=== PATIENT | female | born 1985 | race Hispanic/Latino ===

== ENCOUNTER 2017-10-01 16:44 | Observation (INO) | payer BC, MEDICAID ==
[~2017-10-01] VITALS: Ht 167.6 cm; Wt 143.3 kg
[2017-10-01 17:51] LABS: APPEARANCE,URINE Clear (CLEAR); BILIRUBIN,URINE Negative (NEGATIVE); COLOR,URINE Yellow (YELLOW); GLUCOSE, URINE (UA) Negative (NEGATIVE); KETONES,URINE Negative (NEGATIVE); LEUKOCYTE ESTERASE ,URINE Negative (NEGATIVE); NITRATE,URINE Negative (NEGATIVE); OCCULT BLOOD,URINE Negative (NEGATIVE); PROTEIN,URINE Negative (NEGATIVE)
[2017-10-01 17:51] LABS: BASOPHILS % (AUTO) 0.5 % (0.0-5.0); EOSINOPHILS % (AUTO) 0.5 % (0.0-8.0); HEMATOCRIT 32.6 % (36-48); LYMPHOCYTES % (AUTO) 21.2 % (21.0-51.0); MEAN CORPUSCULAR HEMOGLOBIN 31.1 pg (27.0-33.0); MEAN CORPUSCULAR HGB CONC 35.3 g/dL (32.0-36.0); NEUTROPHILS % (AUTO) 71.8 % (40.0-77.0); PLATELET COUNT (AUTO) 215 K/uL (130-400); RED BLOOD CELL COUNT(AUTO) 3.71 MIL/uL (4.00-5.50); RED CELL DISTRIBUTION WIDTH 14.8 % (11.0-15.5); WHITE BLOOD COUNT (AUTO) 9.9 K/uL (4.8-10.8)
[2017-10-01 18:02] LABS: CREATININE 0.4 mg/dL (0.5-1.5); INR 0.89 (0.85-1.15); PARTIAL THROMBOPLASTIN TIME 25.4 SEC (26.3-35.5); POTASSIUM 3.5 mmol/L (3.5-5.1); PROTHROMBIN TIME 9.4 SEC (9.6-11.6)
[2017-10-01 18:05] LABS: ALBUMIN 2.7 g/dL (3.5-5.0); BILIRUBIN,TOTAL 0.4 mg/dL (0.2-1.0); TOTAL PROTEIN, SERUM 7.1 g/dL (6.0-8.3); URIC ACID 4.5 mg/dL (2.6-7.2)
[2017-10-01] MEDS ORDERED: LACTATED RINGERS 1000ML IV PRN (20:15)
[2017-10-01] MEDS ORDERED: LACTATED RINGERS 1000ML 1,000 ML IV SCH (21:15)
[2017-10-03 07:11] LABS: HEPATITIS Bs ANTIGEN SCREEN P Negative (Negative)
== END 2017-10-02 01:30 | disposition home or self-care (01) ==
LOC: LDH 16:44
PROVIDERS: ADMIT Obstetrics & Gynecology; ATTEND Obstetrics & Gynecology
DX: O13.3 Gestational [pregnancy-induced] hypertension without significant proteinuria, third trimester (principal); O75.82 Onset (spontaneous) of labor after 37 completed weeks of gestation but before 39 completed weeks gestation, with delivery by (planned) cesarean section; Z3A.38 38 weeks gestation of pregnancy
CPT/HCPCS: 36415 ×2; 76819 ×2; 80053; 81003; 84550; 85025; 85384; 85610; 85730; 86592; 86850; 86900; 86901; 87340; 96360; 96361 ×2; G0378 ×10

== ENCOUNTER 2017-10-12 18:04 | Inpatient (IN) | payer BC, MEDICAID ==
[~2017-10-12] VITALS: Ht 167.6 cm; Wt 142.4 kg
[2017-10-12 18:40] LABS: APPEARANCE,URINE Cloudy (CLEAR); BILIRUBIN,URINE Negative (NEGATIVE); COLOR,URINE Dark Yellow (YELLOW); GLUCOSE, URINE (UA) Negative (NEGATIVE); KETONES,URINE Negative (NEGATIVE); LEUKOCYTE ESTERASE ,URINE Trace (NEGATIVE); NITRATE,URINE Negative (NEGATIVE); OCCULT BLOOD,URINE Negative (NEGATIVE); PROTEIN,URINE Negative (NEGATIVE)
[2017-10-12 18:53] LABS: HEMATOCRIT 34.8 % (36-48); MEAN CORPUSCULAR HEMOGLOBIN 30.4 pg (27.0-33.0); MEAN CORPUSCULAR HGB CONC 34.2 g/dL (32.0-36.0); MEAN CORPUSCULAR VOLUME 88.9 fL (79-99); PLATELET COUNT (AUTO) 217 K/uL (130-400); RED BLOOD CELL COUNT(AUTO) 3.92 MIL/uL (4.00-5.50); RED CELL DISTRIBUTION WIDTH 15.3 % (11.0-15.5); WHITE BLOOD COUNT (AUTO) 10.2 K/uL (4.8-10.8)
[2017-10-12 18:57] LABS: BACTERIA,URINE Few /HPF (None Seen); CALCIUM OXALATE CRYSTALS,UR Many /LPF (None Seen); MUCUS,URINE Few LPF (None Seen); RBC,URINE 0-1 /HPF (0-1); WBC,URINE 0-1 /HPF (0-1)
[2017-10-12 19:30] VITALS: BP 124/78
[2017-10-12] MEDS: LACTATED RINGERS 1000ML 1,000 ML IV PRN (22:58)
[2017-10-13] MEDS ORDERED: OXYTOCIN 10 USP UNITS/ML ONE ×2 (04:52→12:16)
[2017-10-13] MEDS ORDERED: LACTATED RINGERS 1000ML 1,000 ML IV ONE ×2 (04:52→12:16)
[2017-10-13] MEDS ORDERED: OXYTOCIN 10 USP UNITS/ML 20 UNIT in LACTATED RINGERS 1000ML 1,000 ML IV SCH (05:00)
[2017-10-13] MEDS: LACTATED RINGERS 1000ML 1,000 ML IV PRN (07:30)
[2017-10-13] MEDS ORDERED: MEPERIDINE-PF 50 MG/ML SYG IVP SCH (09:45)
[2017-10-13] MEDS ORDERED: PROMETHAZINE HCL 25 MG/ML 1ML AMPULE IM SCH (09:45)
[2017-10-13] MEDS ORDERED: BENZOCAINE/LANOLIN/ALOE VERA 60 ML AEROSOL TP PRN (12:45)
[2017-10-13] MEDS ORDERED: MEASLES/MUMPS/RUBELLA VACCINE, LIVE 0.5 ML/VIAL SQ PRN (12:45)
[2017-10-13] MEDS ORDERED: ACETAMINOPHEN 325 MG TAB PO PRN (12:45)
[2017-10-13] MEDS ORDERED: WITCH HAZEL 1 PAD TP PRN (12:45)
[2017-10-13] MEDS ORDERED: LANOLIN 30GM OINTMENT TP PRN (12:45)
[2017-10-13] MEDS ORDERED: DIPH,PERTUSS(ACELL),TET VAC/PF 0.5 ML VIAL IM PRN (12:45)
[2017-10-13] MEDS ORDERED: OXYTOCIN-LR 20 UNITS/1000 ML 1,000 ML IV SCH (12:45)
[2017-10-13 13:52] VITALS: BP 136/74
[2017-10-13 15:43] VITALS: BP 144/94
[2017-10-13] MEDS ORDERED: PNV1TABL17 PO (15:54)
[2017-10-13] MEDS: IBUPROFEN 600 MG TABLET PO PRN (18:20)
[2017-10-13 19:38] VITALS: BP 125/80
[2017-10-13] MEDS: DOCUSATE SODIUM 100 MG CAP PO SCH (20:21)
[2017-10-13 23:19] VITALS: BP 129/85
[2017-10-14 03:21] VITALS: BP 118/62
[2017-10-14 05:23] LABS: HEMATOCRIT 25.5 % (36-48); MEAN CORPUSCULAR HEMOGLOBIN 32.3 pg (27.0-33.0); MEAN CORPUSCULAR HGB CONC 36.4 g/dL (32.0-36.0); MEAN CORPUSCULAR VOLUME 88.7 fL (79-99); PLATELET COUNT (AUTO) 170 K/uL (130-400); RED BLOOD CELL COUNT(AUTO) 2.88 MIL/uL (4.00-5.50); RED CELL DISTRIBUTION WIDTH 15.4 % (11.0-15.5); WHITE BLOOD COUNT (AUTO) 8.2 K/uL (4.8-10.8)
[2017-10-14 07:27] LABS: HEPATITIS Bs ANTIGEN SCREEN P Negative (Negative)
[2017-10-14 07:35] VITALS: BP 133/84
[2017-10-14] MEDS: DOCUSATE SODIUM 100 MG CAP PO SCH (09:01)
[2017-10-14] MEDS: IBUPROFEN 600 MG TABLET PO PRN (09:02)
[2017-10-14 11:53] VITALS: BP 132/92
== END 2017-10-14 14:15 | disposition home or self-care (01) | DRG 775 ==
LOC: LDH 18:04 → OBSVTOIN 18:04 → WSH 10-13 13:54
PROVIDERS: ADMIT Obstetrics & Gynecology; ATTEND Obstetrics & Gynecology
PROC: 10E0XZZ Delivery of Products of Conception, External Approach (ICD-10-PCS; principal; 2017-10-13)
PROC: 10907ZC Drainage of Amniotic Fluid, Therapeutic from Products of Conception, Via Natural or Artificial Opening (ICD-10-PCS; 2017-10-13)
PROC: 3E033VJ Introduction of Other Hormone into Peripheral Vein, Percutaneous Approach (ICD-10-PCS; 2017-10-13)
PROC: 3E0234Z Introduction of Serum, Toxoid and Vaccine into Muscle, Percutaneous Approach (ICD-10-PCS; 2017-10-13)
DX: O69.2XX0 Labor and delivery complicated by other cord entanglement, with compression, not applicable or unspecified (principal); O14.94 Unspecified pre-eclampsia, complicating childbirth; O69.81X0 Labor and delivery complicated by cord around neck, without compression, not applicable or unspecified; Z23 Encounter for immunization; Z37.0 Single live birth; Z3A.39 39 weeks gestation of pregnancy
CPT/HCPCS: 36415; 76805; 81001; 85027; 86592; 86850; 86900; 86901; 87340; 87804; 90715; A4351; J2175; J2550; J2590; J7120

== ENCOUNTER 2021-05-13 08:53 | Observation (INO) | payer OTHER, MEDICAID ==
[~2021-05-13] VITALS: Ht 170.2 cm; Wt 117.9 kg
[~2021-05-13 08:53] MED LIST: PNV1TABL17 PO
[2021-05-13 09:23] VITALS: BP 115/84
[2021-05-13 09:24] LABS: BASOPHILS % (AUTO) 0.3 % (0.0-5.0); EOSINOPHILS % (AUTO) 0.5 % (0.0-8.0); HEMATOCRIT 33.6 % (36-48); LYMPHOCYTES % (AUTO) 15.9 % (21.0-51.0); MEAN CORPUSCULAR HEMOGLOBIN 30.8 pg (27.0-33.0); MEAN CORPUSCULAR HGB CONC 33.6 g/dL (32.0-36.0); MEAN CORPUSCULAR VOLUME 91.6 fL (79-99); MONOCYTES % (AUTO) 5.4 % (3.0-13.0); NEUTROPHILS % (AUTO) 77.2 % (40.0-77.0); PLATELET COUNT (AUTO) 219 K/uL (130-400); RED BLOOD CELL COUNT(AUTO) 3.67 MIL/uL (4.00-5.50); RED CELL DISTRIBUTION WIDTH 13.3 % (11.0-15.5); WHITE BLOOD COUNT (AUTO) 8.6 K/uL (4.8-10.8)
[2021-05-13 09:57] LABS: BILIRUBIN,TOTAL 0.7 mg/dL (0.2-1.0); CREATININE 0.5 mg/dL (0.5-1.5); POTASSIUM 3.8 mmol/L (3.5-5.1); TOTAL PROTEIN, SERUM 7.4 g/dL (6.0-8.3)
[2021-05-13] MEDS ORDERED: CELESTONE SOLUSPAN 6 MG/ML 5ML VIAL IM SCH (10:00)
[2021-05-13] MEDS ORDERED: LACTATED RINGERS 1000ML 1,000 ML IV PRN (10:00)
[2021-05-13] MEDS: LABETALOL HCL 100 MG TABLET PO SCH (20:59)
[2021-05-13] MEDS: ACETAMINOPHEN 500 MG TABLET PO PRN (21:10)
[2021-05-14] MEDS: ACETAMINOPHEN 500 MG TABLET PO PRN (02:41)
[2021-05-14 08:15] LABS: HEPATITIS Bs ANTIGEN SCREEN P Negative (Negative)
[2021-05-14] MEDS: LABETALOL HCL 100 MG TABLET PO SCH (09:30)
[2021-05-14 10:39] LABS: RAPID PLASMA REAGIN NONREACTIVE (NONREACTIVE)
== END 2021-05-14 09:47 | disposition home or self-care (01) ==
LOC: EDH 08:53 → INTOOBSV 08:54 → OBSVTOIN 08:54 → LDH 08:54
PROVIDERS: ADMIT Specialist; ATTEND Specialist
DX: O9A.212 Injury, poisoning and certain other consequences of external causes complicating pregnancy, second trimester (principal); S16.1XXA Strain of muscle, fascia and tendon at neck level, initial encounter; S20.219A Contusion of unspecified front wall of thorax, initial encounter; O99.212 Obesity complicating pregnancy, second trimester; E66.01 Morbid (severe) obesity due to excess calories; Z3A.25 25 weeks gestation of pregnancy; Z68.41 Body mass index [BMI] 40.0-44.9, adult; V43.52XA Car driver injured in collision with other type car in traffic accident, initial encounter; Y93.89 Activity, other specified; Y92.410 Unspecified street and highway as the place of occurrence of the external cause
CPT/HCPCS: 36415; 71045; 72040; 76805; 80053; 85025; 85460; 86592; 86701; 86850; 86900; 86901; 87340; 87390; 96360; 96361; 99284; G0378 ×24; J0702; J7120

== ENCOUNTER 2021-08-12 09:11 | Observation (INO) | payer OTHER, MEDICAID ==
[~2021-08-12] VITALS: Ht 167.6 cm; Wt 145.1 kg
[2021-08-12] MEDS: LACTATED RINGERS 1000ML 1,000 ML IV SCH ×3 (08:45→13:39)
[2021-08-12 09:54] LABS: APPEARANCE,URINE Clear (CLEAR); BILIRUBIN,URINE Small (NEGATIVE); COLOR,URINE Dark Yellow (YELLOW); GLUCOSE, URINE (UA) Negative (NEGATIVE); KETONES,URINE Trace mg/dL (NEGATIVE); LEUKOCYTE ESTERASE ,URINE Small (NEGATIVE); NITRATE,URINE Negative (NEGATIVE); OCCULT BLOOD,URINE Small (NEGATIVE); PH,URINE 5.5 (5.0-8.0); PROTEIN,URINE Trace mg/dL (NEGATIVE)
[2021-08-12 10:21] LABS: BACTERIA,URINE Few /HPF (None Seen); MUCUS,URINE Moderate LPF (None Seen); RBC,URINE 0-1 /HPF (0-1)
[2021-08-12 13:55] LABS: BASOPHILS % (AUTO) 0.4 % (0.0-5.0); EOSINOPHILS % (AUTO) 0.8 % (0.0-8.0); HEMATOCRIT 30.2 % (36-48); LYMPHOCYTES % (AUTO) 15.6 % (21.0-51.0); MEAN CORPUSCULAR HEMOGLOBIN 28.3 pg (27.0-33.0); MEAN CORPUSCULAR HGB CONC 33.1 g/dL (32.0-36.0); MEAN CORPUSCULAR VOLUME 85.6 fL (79-99); MONOCYTES % (AUTO) 6.4 % (3.0-13.0); NEUTROPHILS % (AUTO) 76.4 % (40.0-77.0); PLATELET COUNT (AUTO) 223 K/uL (130-400); RED BLOOD CELL COUNT(AUTO) 3.53 MIL/uL (4.00-5.50); RED CELL DISTRIBUTION WIDTH 14.6 % (11.0-15.5); WHITE BLOOD COUNT (AUTO) 8.5 K/uL (4.8-10.8)
[2021-08-12 14:06] LABS: CREATININE 0.5 mg/dL (0.5-1.5); POTASSIUM 3.6 mmol/L (3.5-5.1)
[2021-08-12 14:10] LABS: ALBUMIN 2.6 g/dL (3.5-5.0); BILIRUBIN,TOTAL 0.6 mg/dL (0.2-1.0); TOTAL PROTEIN, SERUM 6.9 g/dL (6.0-8.3); URIC ACID 4.3 mg/dL (2.6-7.2)
[2021-08-12 14:30] LABS: INR 0.96 (0.85-1.15); PROTHROMBIN TIME 10.5 SEC (9.6-11.6)
[2021-08-12 14:31] LABS: PARTIAL THROMBOPLASTIN TIME 24.5 SEC (26.3-35.5)
[2021-08-12] MEDS ORDERED: LABETALOL HCL 100 MG TABLET ONE (18:40)
[2021-08-12] MEDS ORDERED: LABETALOL HCL 100 MG TABLET PO SCH (18:45)
[2021-08-12 21:00] VITALS: BP 145/78
[2021-08-13] MEDS: LACTATED RINGERS 1000ML 1,000 ML IV SCH (02:26)
== END 2021-08-13 12:30 | disposition home or self-care (01) ==
LOC: LDH 09:11
PROVIDERS: ADMIT Specialist; ATTEND Specialist
DX: O10.913 Unspecified pre-existing hypertension complicating pregnancy, third trimester (principal); O41.03X0 Oligohydramnios, third trimester, not applicable or unspecified; O99.213 Obesity complicating pregnancy, third trimester; E66.01 Morbid (severe) obesity due to excess calories; Z3A.36 36 weeks gestation of pregnancy
CPT/HCPCS: 36415; 59025; 76819; 80053; 81001; 84550; 85025; 85384; 85610; 85730; 87077; 87088; 87186; 96360; 96361 ×4; G0378 ×27; G0379; J7120 ×5

== ENCOUNTER 2021-08-17 10:42 | Inpatient (IN) | payer OTHER ==
[2021-08-17] MEDS ORDERED: LACTATED RINGERS 1000ML 1,000 ML IV ONE (18:00)
[2021-08-17] MEDS ORDERED: LACTATED RINGERS 1000ML 1,000 ML IV PRN (18:00)
[2021-08-17] MEDS ORDERED: PROMETHAZINE HCL 25 MG/ML 1ML AMPULE IM ONE (18:00)
[2021-08-17] MEDS ORDERED: LACTATED RINGERS 500 ML 500 ML IV PRN (18:00)
[2021-08-17] MEDS ORDERED: OXYTOCIN-LR 20 UNITS/1000 ML 1,000 ML IV SCH (18:00)
[2021-08-17] MEDS ORDERED: MEPERIDINE-PF 50 MG/ML SYG IVP ONE (18:00)
[2021-08-17] MEDS ORDERED: EPHEDRINE SULFATE 50 MG/ML AMPULE IVP PRN (18:00)
[2021-08-17] MEDS ORDERED: NALOXONE HCL 0.4 MG/1 ML ML IV PRN (18:00)
[2021-08-17] MEDS ORDERED: MISOPROSTOL 100 MCG TABLET VG SCH (18:00)
[2021-08-17 18:47] LABS: HEMATOCRIT 32.8 % (36-48); MEAN CORPUSCULAR HEMOGLOBIN 27.6 pg (27.0-33.0); MEAN CORPUSCULAR HGB CONC 32.6 g/dL (32.0-36.0); MEAN CORPUSCULAR VOLUME 84.8 fL (79-99); RED BLOOD CELL COUNT(AUTO) 3.87 MIL/uL (4.00-5.50); RED CELL DISTRIBUTION WIDTH 14.6 % (11.0-15.5); WHITE BLOOD COUNT (AUTO) 9.5 K/uL (4.8-10.8)
[2021-08-17 18:59] LABS: APPEARANCE,URINE Clear (CLEAR); BILIRUBIN,URINE Negative (NEGATIVE); COLOR,URINE Yellow (YELLOW); GLUCOSE, URINE (UA) Negative (NEGATIVE); KETONES,URINE Negative (NEGATIVE); LEUKOCYTE ESTERASE ,URINE Trace (NEGATIVE); NITRATE,URINE Negative (NEGATIVE); OCCULT BLOOD,URINE Trace (NEGATIVE); PH,URINE 5.5 (5.0-8.0); PROTEIN,URINE Negative (NEGATIVE)
[2021-08-17 19:16] LABS: BACTERIA,URINE Rare /HPF (None Seen); RBC,URINE 0-1 /HPF (0-1); SQUAMOUS EPITHELIAL CELL,UR Few /HPF (0-2); WBC,URINE 0-1 /HPF (0-1)
[2021-08-17] MEDS: MISOPROSTOL 25 MCG TABLET VG SCH (19:32)
[2021-08-17] MEDS ORDERED: LABETALOL HCL 200 MG TABLET PO SCH (21:00)
[2021-08-17] MEDS ORDERED: AMPICILLIN 2GM+NS 100ML 100 ML IV SCH (21:00)
[2021-08-17 21:03] LABS: INR 0.92 (0.85-1.15); PROTHROMBIN TIME 10.1 SEC (9.6-11.6)
[2021-08-17 21:04] LABS: PARTIAL THROMBOPLASTIN TIME 23.8 SEC (26.3-35.5)
[2021-08-17 21:46] LABS: CREATININE 0.6 mg/dL (0.5-1.5)
[2021-08-17 21:51] LABS: ALBUMIN 2.8 g/dL (3.5-5.0); BILIRUBIN,TOTAL 0.5 mg/dL (0.2-1.0); TOTAL PROTEIN, SERUM 7.4 g/dL (6.0-8.3); URIC ACID 4.7 mg/dL (2.6-7.2)
[2021-08-17] MEDS ORDERED: HYDRALAZINE 20MG/ML VIAL ONE (21:51)
[2021-08-17] MEDS ORDERED: HYDRALAZINE 20MG/ML VIAL IV ONE (22:00)
[2021-08-18] MEDS ORDERED: AMPICILLIN 1GM+NS 50ML 50 ML IV SCH (01:00)
[2021-08-18] MEDS: MISOPROSTOL 25 MCG TABLET VG SCH (01:36)
[2021-08-18] MEDS ORDERED: ACETAMINOPHEN 325 MG TAB PO ONE (02:00)
[2021-08-18] MEDS ORDERED: OXYTOCIN-LR 20 UNITS/1000 ML 1,000 ML IV SCH (06:00)
[2021-08-18] MEDS: LABETALOL HCL 100 MG TABLET PO SCH ×2 (08:00→21:02)
[2021-08-18] MEDS ORDERED: ROPIVACAINE 0.2% 100ML VIAL 100 ML EP SCH (08:30)
[2021-08-18] MEDS ORDERED: LABETALOL 20MG SYG IV SCH (08:30)
[2021-08-18] MEDS ORDERED: FENTANYL CITRATE PF 50 MCG/1 ML 2ML VIAL ONE (08:47)
[2021-08-18] MEDS ORDERED: ROPIVACAINE 0.5% 5MG/ML 30ML IJ ONE (08:49)
[2021-08-18] MEDS ORDERED: LANOLIN 30GM OINTMENT TP PRN (19:00)
[2021-08-18] MEDS ORDERED: BENZOCAINE/LANOLIN/ALOE VERA 60 ML AEROSOL TP PRN (19:00)
[2021-08-18] MEDS ORDERED: ACETAMINOPHEN 325 MG TAB PO PRN (19:00)
[2021-08-18] MEDS ORDERED: ACETAMINOPHEN WITH CODEINE 1 TAB TAB PO PRN (19:00)
[2021-08-18] MEDS ORDERED: WITCH HAZEL 1 PAD TP PRN (19:00)
[2021-08-18] MEDS: IBUPROFEN 600 MG TABLET PO PRN (19:38)
[2021-08-18] MEDS ORDERED: DOCUSATE SODIUM 100 MG CAP PO SCH (21:00)
[2021-08-18 21:55] VITALS: BP 131/82
[2021-08-18] MEDS ORDERED: PREN1TAB80 PO (22:32)
[2021-08-18] MEDS ORDERED: FLU VACC QS2021-22(6MOS UP)/PF 60 MCG/0.5 ML ML IM ONE ×2 (23:00→23:18)
[2021-08-18 23:12] VITALS: BP 138/87
[2021-08-18] MEDS ORDERED: DIPH,PERTUSS(ACELL),TET VAC/PF 0.5 ML VIAL IM ONE (23:30)
[2021-08-19] MEDS ORDERED: LABE100T5 PO (02:05)
[2021-08-19 03:43] VITALS: BP 134/79
[2021-08-19] MEDS: IBUPROFEN 600 MG TABLET PO PRN (03:44)
[2021-08-19] MEDS ORDERED: FLU VACC QS2021-22(6MOS UP)/PF 60 MCG/0.5 ML ML IM SCH (06:30)
[2021-08-19 07:18] LABS: HEPATITIS Bs ANTIGEN SCREEN P Negative (Negative)
[2021-08-19 07:19] VITALS: BP 131/84
[2021-08-19] MEDS: LABETALOL HCL 100 MG TABLET PO SCH (08:21)
[2021-08-19 11:58] VITALS: BP 134/73
[2021-08-19 15:53] VITALS: BP 139/83
== END 2021-08-19 19:35 | disposition home or self-care (01) | DRG 807 ==
LOC: PREOBSVTOIN 17:18 → LDH 17:22 → WSH 08-18 21:50
PROVIDERS: ADMIT Specialist; ATTEND Specialist
PROC: 10E0XZZ Delivery of Products of Conception, External Approach (ICD-10-PCS; principal; 2021-08-18)
PROC: 3E0P7GC Introduction of Other Therapeutic Substance into Female Reproductive, Via Natural or Artificial Opening (ICD-10-PCS; 2021-08-18)
PROC: 3E033VJ Introduction of Other Hormone into Peripheral Vein, Percutaneous Approach (ICD-10-PCS; 2021-08-18)
PROC: 10907ZC Drainage of Amniotic Fluid, Therapeutic from Products of Conception, Via Natural or Artificial Opening (ICD-10-PCS; 2021-08-18)
PROC: 3E0234Z Introduction of Serum, Toxoid and Vaccine into Muscle, Percutaneous Approach (ICD-10-PCS; 2021-08-18)
PROC: 3E02340 Introduction of Influenza Vaccine into Muscle, Percutaneous Approach (ICD-10-PCS; 2021-08-18)
PROC: 3E0R3BZ Introduction of Anesthetic Agent into Spinal Canal, Percutaneous Approach (ICD-10-PCS; 2021-08-18)
PROC: 00HU33Z Insertion of Infusion Device into Spinal Canal, Percutaneous Approach (ICD-10-PCS; 2021-08-18)
DX: O16.4 Unspecified maternal hypertension, complicating childbirth (principal); Z37.0 Single live birth; O99.214 Obesity complicating childbirth; O99.62 Diseases of the digestive system complicating childbirth; K21.9 Gastro-esophageal reflux disease without esophagitis; O69.81X0 Labor and delivery complicated by cord around neck, without compression, not applicable or unspecified; Z3A.37 37 weeks gestation of pregnancy; Z23 Encounter for immunization
CPT/HCPCS: 36415; 76819; 80053; 81001; 84550; 85027; 85384; 85610; 85730; 86592; 86850; 86900; 86901; 87340; 90715; A4314; G0378; J0290; J0360; J2590; J2795; J3010; J7120; Q2035

== ENCOUNTER 2024-02-25 15:36 | Observation (INO) | payer OTHER, MEDICAID ==
[~2024-02-25] VITALS: Ht 167.6 cm; Wt 104.3 kg
[~2024-02-25 15:36] MED LIST changes: +LABE100T7 PO; -PNV1TABL17 PO; +PREN1TAB80 PO
[2024-02-25 15:39] VITALS: BP 154/92; PULSE 83; RESP 16
[2024-02-25 16:22] LABS: APPEARANCE,URINE CLOUDY (CLEAR); BILIRUBIN,URINE NEGATIVE (NEGATIVE); COLOR,URINE YELLOW (YELLOW); GLUCOSE, URINE (UA) NEGATIVE (NEGATIVE); KETONES,URINE 10 mg/dL (NEGATIVE); LEUKOCYTE ESTERASE ,URINE 500 Leu/uL (NEGATIVE); NITRATE,URINE NEGATIVE (NEGATIVE); PROTEIN,URINE 50 mg/dL (NEGATIVE)
[2024-02-25 16:32] LABS: ADD UA MICROSCOPIC YES
[2024-02-25 16:42] LABS: BACTERIA,URINE RARE /HPF (None Seen); MUCUS,URINE MANY LPF (None Seen); SQUAMOUS EPITHELIAL CELL,UR MANY /HPF (0-2)
[2024-02-25] MEDS: CEFTRIAXONE 1G VIAL IVPB ONE (17:10)
[2024-02-25] MEDS: LACTATED RINGERS 1000ML 1,000 ML IV SCH (17:12)
== END 2024-02-25 18:51 | disposition home or self-care (01) ==
LOC: EDH 15:36 → LDH 15:52
PROVIDERS: ADMIT Obstetrics & Gynecology; ATTEND Obstetrics & Gynecology
DX: O36.8130 Decreased fetal movements, third trimester, not applicable or unspecified (principal); O10.913 Unspecified pre-existing hypertension complicating pregnancy, third trimester; Z3A.27 27 weeks gestation of pregnancy
CPT/HCPCS: 96365; 99284; 87086; 81001; 76819; G0378 ×3; J7120 ×2; J0696; 96360; 96372

== ENCOUNTER 2024-03-19 23:10 | Observation (INO) | payer OTHER, MEDICAID ==
[~2024-03-19] VITALS: Ht 167.6 cm; Wt 104.8 kg
[2024-03-19 23:12] VITALS: BP 149/91; PULSE 100; RESP 20
[2024-03-19 23:33] LABS: APPEARANCE,URINE CLEAR (CLEAR); BILIRUBIN,URINE NEGATIVE (NEGATIVE); COLOR,URINE YELLOW (YELLOW); GLUCOSE, URINE (UA) 150 mg/dL (NEGATIVE); KETONES,URINE 5 mg/dL (NEGATIVE); LEUKOCYTE ESTERASE ,URINE 75 Leu/uL (NEGATIVE); NITRATE,URINE NEGATIVE (NEGATIVE); OCCULT BLOOD,URINE SMALL (NEGATIVE); PROTEIN,URINE 50 mg/dL (NEGATIVE); UROBILINOGEN,URINE 0.2 mg/dL (0.2-1.0)
[2024-03-19 23:51] LABS: ADD UA MICROSCOPIC YES
[2024-03-19 23:55] LABS: MUCUS,URINE MANY LPF (None Seen); SQUAMOUS EPITHELIAL CELL,UR MOD /HPF (0-2)
== END 2024-03-20 01:08 | disposition home or self-care (01) ==
LOC: EDH 23:10 → LDH 23:11
PROVIDERS: ADMIT Obstetrics & Gynecology; ATTEND Obstetrics & Gynecology
DX: O36.8130 Decreased fetal movements, third trimester, not applicable or unspecified (principal); Z3A.31 31 weeks gestation of pregnancy
CPT/HCPCS: 87086; 81001; 76819; G0378 ×2; G0379

== ENCOUNTER 2024-04-25 16:02 | Observation (INO) | payer OTHER, MEDICAID ==
[~2024-04-25] VITALS: Ht 167.6 cm; Wt 108.0 kg
[2024-04-25 16:03] VITALS: BP 162/98; PULSE 73; RESP 20; TEMP 98.7
[2024-04-25 16:38] LABS: BASOPHILS # (AUTO) 0.02 K/uL (0.00-0.20); BASOPHILS % (AUTO) 0.3 % (0.0-5.0); EOSINOPHILS # (AUTO) 0.02 K/uL (0.00-0.70); EOSINOPHILS % (AUTO) 0.3 % (0.0-8.0); HEMATOCRIT 31.8 % (36-48); IMMATURE GRANULOCYTE ABSOLUTE 0.03 K/uL (0-1); LYMPHOCYTES # (AUTO) 1.6 K/uL (1.0-4.8); LYMPHOCYTES % (AUTO) 19.5 % (21.0-51.0); MEAN CORPUSCULAR HEMOGLOBIN 31.7 pg (27.0-33.0); MEAN CORPUSCULAR HGB CONC 34.3 g/dL (32.0-36.0); MEAN CORPUSCULAR VOLUME 92.4 fL (79-99); MONOCYTES # (AUTO) 0.4 K/uL (0.1-1.0); MONOCYTES % (AUTO) 5.5 % (3.0-13.0); NEUTROPHILS # (AUTO) 5.9 K/uL (1.8-7.7); PLATELET COUNT (AUTO) 218 K/uL (130-400); RED BLOOD CELL COUNT(AUTO) 3.44 MIL/uL (4.00-5.50); RED CELL DISTRIBUTION WIDTH 13.1 % (11.0-15.5)
[2024-04-25 16:41] LABS: APPEARANCE,URINE CLOUDY (CLEAR); BILIRUBIN,URINE NEGATIVE (NEGATIVE); COLOR,URINE YELLOW (YELLOW); GLUCOSE, URINE (UA) NEGATIVE (NEGATIVE); KETONES,URINE 5 mg/dL (NEGATIVE); LEUKOCYTE ESTERASE ,URINE 500 Leu/uL (NEGATIVE); NITRATE,URINE NEGATIVE (NEGATIVE); PH,URINE 6.5 (5.0-8.0); PROTEIN,URINE 20 mg/dL (NEGATIVE); UROBILINOGEN,URINE 0.2 mg/dL (0.2-1.0)
[2024-04-25 16:42] LABS: ADD UA MICROSCOPIC YES
[2024-04-25 16:44] LABS: BACTERIA,URINE RARE /HPF (None Seen); MUCUS,URINE RARE LPF (None Seen); SQUAMOUS EPITHELIAL CELL,UR FEW /HPF (0-2)
[2024-04-25 16:51] LABS: INR 0.94 (0.85-1.15); PROTHROMBIN TIME 10.2 SEC (9.6-11.6)
[2024-04-25 16:52] LABS: PARTIAL THROMBOPLASTIN TIME 23.9 SEC (26.3-35.5)
[2024-04-25 16:54] LABS: ALBUMIN 2.8 g/dL (3.5-5.0); BILIRUBIN,TOTAL 0.7 mg/dL (0.2-1.0); CREATININE 0.6 mg/dL (0.5-1.0); POTASSIUM 4.2 mmol/L (3.5-5.1); TOTAL PROTEIN, SERUM 7.2 g/dL (6.0-8.3)
== END 2024-04-25 18:00 | disposition home or self-care (01) ==
LOC: EDH 16:02 → LDH 16:03
PROVIDERS: ADMIT Obstetrics & Gynecology; ATTEND Obstetrics & Gynecology
DX: O26.893 Other specified pregnancy related conditions, third trimester (principal); R03.0 Elevated blood-pressure reading, without diagnosis of hypertension; Z3A.36 36 weeks gestation of pregnancy; Z79.899 Other long term (current) drug therapy; Z98.890 Other specified postprocedural states
CPT/HCPCS: 76805; 84550; 80053; 85025; 85384; 85610; 85730; 87086; 81001; 36415; G0379; G0378; 59025

== ENCOUNTER 2024-05-06 14:19 | Inpatient (IN) | payer OTHER, MEDICAID ==
[~2024-05-06] VITALS: Ht 167.6 cm; Wt 108.9 kg
[2024-05-06] MEDS: LAbetaLOL HCL 200 MG TABLET PO SCH (00:12)
[2024-05-06 15:08] LABS: BASOPHILS # (AUTO) 0.02 K/uL (0.00-0.20); BASOPHILS % (AUTO) 0.3 % (0.0-5.0); EOSINOPHILS # (AUTO) 0.02 K/uL (0.00-0.70); EOSINOPHILS % (AUTO) 0.3 % (0.0-8.0); IMMATURE GRANULOCYTE ABSOLUTE 0.02 K/uL (0-1); LYMPHOCYTES # (AUTO) 1.3 K/uL (1.0-4.8); LYMPHOCYTES % (AUTO) 20.3 % (21.0-51.0); MEAN CORPUSCULAR HEMOGLOBIN 30.7 pg (27.0-33.0); MEAN CORPUSCULAR HGB CONC 33.6 g/dL (32.0-36.0); MEAN CORPUSCULAR VOLUME 91.4 fL (79-99); MONOCYTES # (AUTO) 0.4 K/uL (0.1-1.0); MONOCYTES % (AUTO) 6.2 % (3.0-13.0); NEUTROPHILS # (AUTO) 4.7 K/uL (1.8-7.7); NEUTROPHILS % (AUTO) 72.6 % (40.0-77.0); PLATELET COUNT (AUTO) 225 K/uL (130-400); RED BLOOD CELL COUNT(AUTO) 3.61 MIL/uL (4.00-5.50); RED CELL DISTRIBUTION WIDTH 12.7 % (11.0-15.5); WHITE BLOOD COUNT (AUTO) 6.5 K/uL (4.8-10.8)
[2024-05-06 15:23] LABS: CREATININE 0.7 mg/dL (0.5-1.0); POTASSIUM 3.7 mmol/L (3.5-5.1)
[2024-05-06 15:24] LABS: INR 0.96 (0.85-1.15); PROTHROMBIN TIME 10.4 SEC (9.6-11.6)
[2024-05-06 15:25] LABS: PARTIAL THROMBOPLASTIN TIME 23.5 SEC (26.3-35.5)
[2024-05-06 15:27] LABS: ALBUMIN 2.8 g/dL (3.5-5.0); BILIRUBIN,TOTAL 1.3 mg/dL (0.2-1.0); TOTAL PROTEIN, SERUM 7.4 g/dL (6.0-8.3); URIC ACID 4.2 mg/dL (2.6-7.2)
[2024-05-06 15:46] LABS: APPEARANCE,URINE CLOUDY (CLEAR); BILIRUBIN,URINE NEGATIVE (NEGATIVE); COLOR,URINE YELLOW (YELLOW); GLUCOSE, URINE (UA) NEGATIVE (NEGATIVE); KETONES,URINE 60 mg/dL (NEGATIVE); LEUKOCYTE ESTERASE ,URINE 500 Leu/uL (NEGATIVE); NITRATE,URINE NEGATIVE (NEGATIVE); OCCULT BLOOD,URINE SMALL (NEGATIVE); PROTEIN,URINE 50 mg/dL (NEGATIVE)
[2024-05-06 15:49] LABS: ADD UA MICROSCOPIC YES
[2024-05-06 15:53] LABS: BACTERIA,URINE FEW /HPF (None Seen); MUCUS,URINE MANY LPF (None Seen); SQUAMOUS EPITHELIAL CELL,UR MANY /HPF (0-2)
[2024-05-06] MEDS ORDERED: NALoxone HCL 0.4 MG/1 ML ML IV PRN (16:00)
[2024-05-06] MEDS ORDERED: ePHEDrine SULFate 50 MG/ML AMPULE IVP PRN (16:00)
[2024-05-06] MEDS: LACTATED RINGERS 1000ML 1,000 ML IV PRN (16:11)
[2024-05-07] MEDS: LACTATED RINGERS 500 ML 500 ML IV PRN (00:14)
[2024-05-07] MEDS ORDERED: MAGNESIUM SULFATE 40GM/1000ML 1,000 ML IV PRN (04:30)
[2024-05-07] MEDS ORDERED: CALCIUM GLUC 1GM/10ML VIAL IV PRN ×2 (04:30→12:00)
[2024-05-07] MEDS: MAGNESIUM 4GM PREMIX 100ML 100 ML IV PRN (04:32)
[2024-05-07] MEDS: LAbetaLOL 20MG VIAL IV PRN (04:33)
[2024-05-07] MEDS: LACTATED RINGERS 1000ML 1,000 ML IV SCH (04:34)
[2024-05-07] MEDS: MAGNESIUM 4GM PREMIX 100ML 100 ML IV ONE (04:35)
[2024-05-07] MEDS: LAbetaLOL 20MG VIAL ONE (04:35)
[2024-05-07] MEDS: MAGNESIUM SULFATE 40GM/1000ML 1,000 ML IV ONE (04:56)
[2024-05-07 05:33] VITALS: PULSE 62
[2024-05-07] MEDS ORDERED: MISOPROSTOL 200 MCG TABLET ONE (07:08)
[2024-05-07] MEDS: MEPERIDINE-PF 50 MG/ML SYG IVP PRN (07:40)
[2024-05-07] MEDS: PROMETHAZINE HCL 25 MG/ML 1ML AMPULE IM PRN (07:40)
[2024-05-07] MEDS ORDERED: LIDOCAINE HCL 1% 20 ML VIAL ONE ×2 (09:29→11:25)
[2024-05-07] MEDS ORDERED: FENTanyl CITRate PF 50 MCG/1 ML 2ML VIAL ONE (10:04)
[2024-05-07] MEDS ORDERED: MAGNESIUM 4GM PREMIX 100ML 100 ML IV PRN (12:00)
[2024-05-07] MEDS ORDERED: LACTATED RINGERS 1000ML 1,000 ML IV SCH (12:00)
[2024-05-07] MEDS ORDERED: LANOLIN 30GM OINTMENT TP PRN (12:30)
[2024-05-07] MEDS ORDERED: BENZOCAINE/LANOLIN/ALOE VERA 60 ML AEROSOL TP PRN (12:30)
[2024-05-07] MEDS ORDERED: acetaMINOPHEN 325 MG TAB PO PRN (12:30)
[2024-05-07] MEDS ORDERED: WITCH HAZEL 1 PAD TP PRN (12:30)
[2024-05-07] MEDS: ibuPROFEN 600 MG TABLET PO PRN (13:16)
[2024-05-07] MEDS: hydrALAZine 20MG/ML VIAL ONE ×2 (13:48→19:19)
[2024-05-07] MEDS: hydrALAZine 20MG/ML VIAL IV ONE ×2 (13:49→19:30)
[2024-05-07] MEDS: acetaMINOPHEN WITH coDEINE 1 TAB TAB PO PRN (20:24)
[2024-05-07] MEDS: doCUSate SODIUM 100 MG CAP PO SCH (21:17)
[2024-05-08] MEDS: MAGNESIUM SULFATE 40GM/1000ML 1,000 ML IV PRN (02:13)
[2024-05-08 07:36] LABS: MEAN CORPUSCULAR HEMOGLOBIN 30.8 pg (27.0-33.0); MEAN CORPUSCULAR VOLUME 93.5 fL (79-99); RED BLOOD CELL COUNT(AUTO) 3.21 MIL/uL (4.00-5.50); WHITE BLOOD COUNT (AUTO) 6.4 K/uL (4.8-10.8)
[2024-05-08 11:35] VITALS: BP 111/73; PULSE 71; RESP 18; TEMP 98.9
[2024-05-08] MEDS ORDERED: LABE200T7 PO (15:09)
[2024-05-08] MEDS ORDERED: AEC81 PO (15:09)
[2024-05-08] MEDS ORDERED: PREN1TAB80 PO (15:09)
[2024-05-08 16:00] VITALS: BP 125/74; PULSE 65; RESP 18; TEMP 98.5
[2024-05-08] MEDS: FLU VACC TS2024-25(6MOS UP)/PF 45 MCG/0.5 ML ML IM ONE (17:14)
[2024-05-08] MEDS: DIPH,PERTUSS(ACELL),TET VAC/PF 0.5 ML VIAL IM ONE (17:15)
[2024-05-08 19:15] VITALS: BP 155/90; PULSE 74; RESP 18; TEMP 98.1
[2024-05-08 20:43] VITALS: BP 155/81
[2024-05-08 22:25] VITALS: BP 156/89
[2024-05-08 23:23] VITALS: BP 161/90; PULSE 67; RESP 19; TEMP 98.7
[2024-05-08] MEDS: LAbetaLOL HCL 100 MG TABLET PO ONE (23:23)
[2024-05-09 03:40] VITALS: BP 150/77; PULSE 69; RESP 18; TEMP 98.2
[2024-05-09 08:00] VITALS: BP 138/85; PULSE 59; RESP 18; TEMP 98.5
[2024-05-09] MEDS ORDERED: LAbetaLOL HCL 200 MG TABLET PO SCH (09:00)
[2024-05-09 09:55] VITALS: BP 137/69; PULSE 76
[2024-05-09] MEDS: LAbetaLOL HCL 200 MG TABLET PO SCH (10:10)
[2024-05-09 12:06] VITALS: BP 133/83; PULSE 76; RESP 20; TEMP 98.2
== END 2024-05-09 14:10 | disposition home or self-care (01) | DRG 806 ==
LOC: EDH 14:19 → LDH 14:20 → INTOOBSV 14:20 → OBSVTOIN 14:20 → WSH 05-08 11:37
PROVIDERS: ADMIT Obstetrics & Gynecology; ATTEND Obstetrics & Gynecology
PROC: 10E0XZZ Delivery of Products of Conception, External Approach (ICD-10-PCS; principal; 2024-05-07)
PROC: 10907ZC Drainage of Amniotic Fluid, Therapeutic from Products of Conception, Via Natural or Artificial Opening (ICD-10-PCS; 2024-05-07)
DX: O11.4 Pre-existing hypertension with pre-eclampsia, complicating childbirth (principal); O41.03X0 Oligohydramnios, third trimester, not applicable or unspecified; Z37.0 Single live birth; O36.8130 Decreased fetal movements, third trimester, not applicable or unspecified; Z3A.38 38 weeks gestation of pregnancy
CPT/HCPCS: 36415; 76819; 80053; 81001; 83735; 84550; 85025; 85027; 85384; 85610; 85730; 86592; 86850; 86900; 86901; 87086; 87340; 90715; A4314; G0008; G0378; J0360; J2175; J2550; J2795; J3010; J3475; J3490; J7120; Q2035; A4510; A4600; Q2038